=== PATIENT | female | born 1970 | race American Indian/Alaskan Native ===

== ENCOUNTER 2019-12-09 12:06 | Outpatient (CLI) | payer OTHER | END 2019-12-09 12:07 | disposition home or self-care (01) | LOC: PF 12:06 | PROVIDERS: ATTEND Internal Medicine | DX: J45.909 Unspecified asthma, uncomplicated (principal); K58.9 Irritable bowel syndrome, unspecified; F32.9 Major depressive disorder, single episode, unspecified; F41.9 Anxiety disorder, unspecified | CPT/HCPCS: 94010 ==

== ENCOUNTER 2019-12-24 09:11 | Outpatient (CLI) | payer OTHER ==
--- NOTE | 2019-12-24 11:17 | XRay Report ---
BILATERAL HANDS HISTORY: Bilateral hand pain. COMPARISON: None. TECHNIQUE: 2 views of each hand were obtained. FINDINGS: Bones: No fracture or dislocation. Joint spaces: Maintained. Soft tissues: No significant abnormality. Additional findings: None. IMPRESSION: 1. No significant abnormality. Signer Name: Eldon Short MD Signed: 12/24/2019 11:12 AM Workstation Name: [id number]
== END 2019-12-24 09:12 | disposition home or self-care (01) ==
LOC: XRAY 09:11
PROVIDERS: ATTEND Internal Medicine
DX: M79.642 Pain in left hand (principal); M79.641 Pain in right hand; F32.9 Major depressive disorder, single episode, unspecified; F41.9 Anxiety disorder, unspecified